=== PATIENT | male | born 1970 | race Caucasian/White ===

== ENCOUNTER 2018-01-06 15:57 | Emergency (ER) | payer SELFPAY ==
[2018-01-06 15:58] VITALS: BP 117/72; PULSE 95; RESP 17; TEMP 36.4; O2SAT 98; BMI 21.3
--- NOTE | 2018-01-06 16:08 | ED.VISSUMM ---
- ER Visit Summary Date of Service: 01/06/18 Chief Complaint: Back pain History of Present Illness: The patient is a 47 M who presents with back pain. Is been ongoing for 3 days. He tried to lift a tree of his driveway when he strained his lower back. Is in the right lumbar area. Movement and bending make it worse. Sitting makes it better at times. Denies any bowel or bladder incontinence. He has been trying heat, Aleve and Motrin without relief. He has a history of similar episodes in the past Physical Examination: Vital signs are reviewed. Back exam reveals right lumbar paraspinal tenderness to palpation. No midline tenderness. No thoracic or cervical pain. His neurologic exam is normal. Test Results: None indicated Emergency Department Course and Treatment: Patient will be given Norflex and Toradol here. He will go home with Dolobid and Flexeril. He will follow-up with his PCP he was also counseled on using ice and heat. Treatment Plan: [] Disposition: Discharge Impression: Lumbosacral strain This note was generated with [employer] dictation software. It may contain incorrect words, spelling, and punctuation that were not noted in review of the chart prior to signing ED Disposition - Plan for ED Patient: Chief Complaint: Back Referrals: Xiang Hooper MD [Primary Care Provider] -
--- NOTE | 2018-01-06 16:10 | ED.DEP ---
ED Disposition - Plan for ED Patient: Disposition: Home or Assisted Living Chief Complaint: Back Instructions: ED Sprain Strain Lumbar Prescriptions: Cyclobenzaprine [Flexeril] 10 mg PO TID PRN #20 tab PRN Reason: Muscle Spasm Diflunisal [Dolobid] 500 mg PO TID #21 tab Referrals: Xiang Hooper MD [Primary Care Provider] -
[2018-01-06] MEDS: Ketorolac 60 MG/2 ML Vial IM (16:27)
[2018-01-06] MEDS: Orphenadrine 60 MG/2 ML Ampul IM (16:27)
[2018-01-06 16:59] VITALS: BP 112/71; PULSE 82; RESP 14; TEMP 36.7; O2SAT 100
== END 2018-01-06 16:59 | disposition home or self-care (01) ==
PROVIDERS: Emergency Provider Emergency Medicine; Family Provider Family Medicine; PCP Family Medicine
DX: S39.012A Strain of muscle, fascia and tendon of lower back, initial encounter (principal); X50.0XXA Overexertion from strenuous movement or load, initial encounter; Y93.9 Activity, unspecified; Y92.008 Other place in unspecified non-institutional (private) residence as the place of occurrence of the external cause; Y99.9 Unspecified external cause status; Z72.0 Tobacco use
CPT/HCPCS: 96372; 99282

== ENCOUNTER 2020-10-23 19:58 | Emergency (ER) | payer SELFPAY ==
[2020-10-23 20:00] VITALS: BP 100/46; PULSE 82; RESP 16; TEMP 35.1; O2SAT 97; BMI 20.9
--- NOTE | 2020-10-23 20:10 | ED.DCSUM_ITS ---
History of Present Illness Chief Complaint: Dental Informant: Patient Onset: Days Context: Gradual Onset Current Severity: Moderate Maximum Severity: Moderate Narrative: Patient presents secondary to right upper dental pain and facial swelling. Patient states that he had been in the process of getting his teeth pulled but recently because of financial constraints has not been able to follow-up. 3 days ago he noted increased pain and swelling to the right upper dental region. No fevers or chills. No difficulty swallowing. - Past Medical History (1) MVP (mitral valve prolapse) Status: Chronic Past Medical History - Allergies and Home Meds Allergies/Adverse Reactions: Allergies Penicillins Allergy (Verified 10/23/20 20:01) Anaphylaxis Primary Care Physician: Xiang Hooper MD [Primary Care Provider] - Prior records reviewed: Yes Surgical History: noncontributory Lives: Spouse/ Significant Other Smoking Status: Current every day smoker Review of Systems General: Denies: Chills, Fever Eyes: Denies: Visual changes - bilaterally ENT: Reports: - - Right upper dental pain. Denies: Bilateral ear pain Cardiovascular: Denies: Chest pain Respiratory: Denies: Dyspnea, Cough Gastrointestinal: Denies: Abdominal pain, Vomiting, Diarrhea Genitourinary: Denies: Dysuria Musculoskeletal: Denies: Extremity Pain Skin: Denies: Rash Hematologic: Denies: Easy bruising, Easy bleeding Allergy: Denies: Uticaria Physical Exam Vital Signs/Narrative: Vital Signs Temp Pulse Resp BP Pulse Ox 10/23/20 20:00 95.1 F L 82 16 100/46 L 97 Inital Vital Signs reviewed: Yes General: Well nourished, Well developed Head: Normocephalic ENT: Moist mucous membranes, - - Patient is largely edentulous on the maxillary surface. There is one visible tooth broken at the root on the right upper side I believe is the primary source of the current infection. He does have mild right-sided facial edema. No facial erythema noted. No evidence of Mohsen's angina. Neck: Supple Cardiovascular: Regular rate, Regular rhythm Respiratory: No distress, CTA bilaterally Abdomen: Soft, Nontender Extremities: Nontender Skin: Normal color Neurological: Alert, Oriented x3 Psychological: Normal affect Diagnostic/Tx/Re-eval - Medical Decision Making Patient be treated with a course of clindamycin as he does have a penicillin allergy. He is given dental referral list. ED Disposition - Plan for ED Patient: Disposition: Home or Assisted Living Diagnosis: Dental infection Instructions: ED Dental Abscess Prescriptions: Clindamycin [Cleocin] 300 mg PO 4X/DAY #80 cap Transmission Status: Pending to [facility] Additional Instructions: Dental referral list provided.
[2020-10-23] MEDS: Clindamycin HCl 150 MG Capsule 300 MG PO (20:21)
== END 2020-10-23 20:28 | disposition home or self-care (01) ==
LOC: ED 20:22
PROVIDERS: Emergency Provider Emergency Medicine; PCP Family Medicine
DX: K04.7 Periapical abscess without sinus (principal); F17.200 Nicotine dependence, unspecified, uncomplicated
CPT/HCPCS: 99283

== ENCOUNTER 2022-02-10 08:00 | Emergency (ER) | payer SELFPAY ==
[2022-02-10 08:01] VITALS: BP 110/80; PULSE 90; RESP 18; TEMP 36.6; O2SAT 99; BMI 20.7
--- NOTE | 2022-02-10 08:15 | ED.VIS.DENTA ---
HPI History of Present Illness Chief Complaint: Dental Informant: patient Onset/Context/Timing Onset: Days Context: Gradual Onset Timing: Continuous Quality: Aching Location: Right upper molars Worsened by: Nothing Relieved by: - (Nothing) Associated Symptoms Assocated Symptom - Dental: jaw swelling and face swelling; Negative for fever, cold sensitivity or hot sensitivity Narrative Narrative: Patient presents with right upper dental pain that has been getting worse over the past couple days. Patient admits to increased swelling. Patient describes his pain as aching. Patient states nothing makes it better nothing makes it worse. Patient denies any fevers or chills. Patient denies any hot or cold sensitivity. Patient does admit to swelling of his face and jaw. Patient denies any difficulty breathing or difficulty swallowing. [facility] Medical History (Updated 02/10/22 @ 08:[address] Aman Morfin DO) Hx of cleft palate with cleft lip Home Medications clindamycin HCl [Cleocin HCl] 300 mg PO Q6H #40 capsule 02/10/22 [Rx Last Taken Unknown] Allergy/AdvReac Type Severity Reaction Status Date / Time Penicillins Allergy Anaphylaxis Verified 02/10/22 08:03 Surgical History (Updated 02/10/22 @ 08:[address] Aman Morfin DO) History of facial surgery Social History Smoking Status: Current every day smoker tobacco type: cigarettes ROS ROS ED Constitutional Constitutional ED: Denies chills or fever(s) Eyes Eyes: Denies blurry vision or change in vision ENT ENT ED: Reports sore throat; Denies rhinorrhea Cardiovascular Cardiovascular: Denies chest pain or palpitations Respiratory/Chest Respiratory/Chest: Denies cough or dyspnea Gastrointestinal Gastrointestinal: Denies nausea or vomiting Genitourinary Genitourinary ED: Denies dysuria or hematuria Musculoskeletal Musculoskeletal: Denies back pain or neck pain Integumentary Denies abscess or rash Neurologic Neurologic: Denies headache(s) or weakness Allergic/Immunologic Allergic/Immunologic ED: Denies mouth swelling or urticaria EXAM Physical Exam Const Vital Signs: 02/10/22 08:01 Temperature 98 F Temperature Source Temporal Pulse Rate 90 Respiratory Rate 18 Blood Pressure 110/80 Blood Pressure Mean 90 Pulse Ox 99 Oxygen Delivery Method Room Air Positive well nourished and well developed General Appearance ED: well developed and NAD HEENT HEENT Narrative: There are dental caries over the right upper premolar and molar. There is some gingival edema over the right upper molar. There is no fluctuance or evidence of any abscess. There is no discharge or drainage. Neck is supple. Trachea is midline. There is no JVD or lymphadenopathy. There is no sublingual edema or evidence of Shai's angina. Oropharynx is clear. Airway is patent. Mouth ED: Yes oral and palatal mucosa normal Mouth: oral and palatal mucosa normal Teeth and Gingiva: caries and poor dentition Throat: posterior oropharynx normal Neck no lymphadenopathy, supple and no JVD General: Negative for anterior neck swelling or submandibular swelling Neuro oriented x3, CN's II-XII intact bilaterally, moves all extremities, no focal motor deficits and no sensory deficits noted Sensorium / Orientation: alert Psych mental status grossly normal MDM MDM MDM Narrative Medical decision making narrative: Patient was given a dose of clindamycin here. Patient was given a prescription for clindamycin. Patient was instructed to take Tylenol or ibuprofen as needed for pain. Patient was instructed to follow-up with her dentist in 5 to 7 days. Patient was given a dental referral. Patient understood and was agreeable with the plan. All questions were answered. Discharge Plan Triage Chief Complaint: Dental ED Provider: Aman Morfin Dx/Rx/DC Orders Clinical Impression: Infected dental caries Instructions: ED Dental Pain, ED Dental Cavity Prescriptions: New clindamycin HCl [Cleocin HCl] 300 MG capsule 300 mg PO Q6H Qty: 40 RF: 0 Stand Alone Forms: ED Work / School Excuse Primary Care Provider: Xiang Hooper Referrals: Xiang Hooper MD [Primary Care Provider] - Joya Mota [NON-STAFF] - 5-7 Days Disposition Disposition: Home, Self Care
[2022-02-10] MEDS: Clindamycin HCl 150 MG Capsule 300 MG PO (08:33)
[2022-02-10 08:36] VITALS: RESP 16
== END 2022-02-10 08:37 | disposition home or self-care (01) ==
PROVIDERS: Emergency Provider Emergency Medicine; PCP Family Medicine; Visit Provider Emergency Medicine
DX: K02.9 Dental caries, unspecified (principal); F17.210 Nicotine dependence, cigarettes, uncomplicated
CPT/HCPCS: 99282

== ENCOUNTER 2022-02-22 16:01 | Emergency (ER) | payer SELFPAY ==
[2022-02-22 16:01] VITALS: BP 128/91; PULSE 78; RESP 16; TEMP 36.2; O2SAT 98; BMI 21.0
--- NOTE | 2022-02-22 16:18 | EX.ED.DYSGE1 ---
HPI History of Present Illness Chief Complaint: Rash Detail of Chief Complaint: Rash x2 days Informant: patient Narrative Narrative: Patient presents to the emergency department complaint of a rash that started 2 days ago. Patient states that he was started on clindamycin for a tooth infection 2 weeks ago and was still taking it when the rash started. Patient discontinued the clindamycin when the rash started. Patient complains of an itchy rash that oftentimes on his arms and trunk. Patient states that when he is at work and sweating it seems to be worse. He complains of itching with it. Denies any new soaps or detergents or other allergens. He denies any contact with chemicals or anything else that might explain the rash. Prior similar symptoms: No PFSH PFS Medical History (Updated 02/22/22 @ 16:[address] Andrea Del Rosario DO) Hx of cleft palate with cleft lip Home Medications clindamycin HCl [Cleocin HCl] 300 mg PO Q6H #40 capsule 02/10/22 [Rx Last Taken Unknown] prednisone 20 mg PO BID #10 tab 02/22/22 [Rx Last Taken Unknown] Allergy/AdvReac Type Severity Reaction Status Date / Time Penicillins Allergy Anaphylaxis Verified 02/22/22 16:01 Surgical History History of facial surgery Social History Smoking Status: Current every day smoker tobacco type: cigarettes ROS ROS ED Constitutional Constitutional ED: Reports systems reviewed and no addt'l complaints, except as documented; Denies body ache(s), change in weight or chills Eyes Eyes: Denies acute decrease in peripheral vision, change in vision, double vision or loss of vision ENT ENT ED: Reports none; Denies ear pain, lip swelling, loss taste/smell, neck pain, otalgia or sore throat Cardiovascular Cardiovascular: Reports none; Denies abdominal pain, chest pain with activity, leg edema, lightheadedness, palpitations, rapid heart rate or syncope Respiratory/Chest Respiratory/Chest: Reports none; Denies change in mental status, dry cough, dyspnea, hemoptysis, shortness of breath at rest or shortness of breath with exertion Gastrointestinal Gastrointestinal: Reports none; Denies abdominal pain, change in stool character, diarrhea, hematemesis, hematochezia, melena, rectal bleeding or vomiting Genitourinary Genitourinary ED: Reports none; Denies abdominal discomfort, anuria, dysuria, genital pain or polyuria Musculoskeletal Musculoskeletal: Reports none; Denies arthralgias, back pain, difficulty walking, extremity pain, muscle weakness or myalgias Integumentary Reports none and rash; Denies abscess Neurologic Neurologic: Reports none; Denies abnormal gait, confusion, focal weakness, frequent falls, headache(s), loss of vision, numbness, paresthesias, radicular pain, vertigo or weakness Psychiatric Psychiatric: Reports systems reviewed and no addt'l complaints, except as documented and none; Denies behavioral changes, confusion, difficulty concentrating, hallucinations, suicidal ideation, tactile hallucinations or visual hallucinations Endocrine Endocrinology: Denies none, cold intolerance, excessive sweating, fatigue or heat intolerance Hematologic/Lymphatic Hematologic/Lymphatic: Reports none; Denies anemia, easy bleeding or easy bruising Allergic/Immunologic Allergic/Immunologic ED: Denies as per HPI, none, lip swelling, mouth swelling, throat swelling, tongue swelling or hives EXAM Physical Exam Const Vital Signs: 02/22/22 16:01 Temperature 97.1 F L Temperature Source Temporal Pulse Rate 78 Respiratory Rate 16 Blood Pressure 128/91 H Blood Pressure Mean 103 Pulse Ox 98 Oxygen Delivery Method Room Air Positive well nourished and well developed General Appearance ED: well developed and NAD HEENT Reports TM's clear and moist mucous membranes normocephalic and atraumatic; Negative for trauma or tenderness Tympanic Membrane ED: Yes TM's clear Eyes PERRL and EOMs intact bilaterally General Eye ED: Negative for pale conjunctiva or scleral icterus Neck no lymphadenopathy, supple and no JVD General: Negative for tenderness Chest Wall inspection of chest normal and palpation of chest normal Chest: Negative for tenderness Resp normal respiratory effort and clear to auscultation bilaterally Effort and Inspection: Negative for respiratory distress or pain with movement Auscultation: Negative for rhonchi, wheezes or diminished lung sounds Cardio regular rate, regular rhythm, S1 normal heart sound, S2 normal heart sound and no murmurs Peripheral Pulses: pulses 2+ throughout GI normal to inspection, nondistended, normoactive bowel sounds, soft to palpation, non-tender, non-distended and no masses Back/Spine no CVA tenderness and no thoracic nor lumbar tenderness Extremity normal to inspection General Extremety ED: Negative for edema General Extremity: Negative for edema Neuro oriented x3, CN's II-XII intact bilaterally, no sensory deficits noted and gait normal Sensorium / Orientation: awake, alert, oriented to person, oriented to place and oriented to time Motor Exam: strength 5/5 throughout and strength abnormal Psych mental status grossly normal Skin no wounds Skin Narrative: Patient has some faint erythema noted on the anterior chest that blanches. I do not appreciate any other lesions on the extremities or trunk otherwise. Patient does describe the rash as hive-like when it is severe. MDM MDM MDM Narrative Medical decision making narrative: Etiology of the rash is unclear although suspect may be related to the use of clindamycin. Patient advised the avoid that in the future if possible. There is no evidence of angioedema or difficulty breathing. Patient will be started on prednisone and given first dose in the emergency department. Patient to follow-up with his primary care physician or physician on-call for no doc within the next 3 to 5 days. Patient advised to return if lip or tongue swelling or difficulty breathing or condition should worsen anyway. Discharge Plan Triage Chief Complaint: Rash ED Provider: Andrea Del Rosario Dx/Rx/DC Orders Clinical Impression: Allergic drug rash Instructions: ED Drug Reaction, Other Prescriptions: New prednisone 20 mg tablet 20 mg PO BID Qty: 10 RF: 0 No Action clindamycin HCl [Cleocin HCl] 300 MG capsule 300 mg PO Q6H Qty: 40 RF: 0 Primary Care Provider: Xiang Hooper Referrals: Xiang Hooper MD [Primary Care Provider] - 3-5 Days Disposition Disposition: Home, Self Care
[2022-02-22] MEDS: predniSONE 20 MG Tablet 40 MG PO (16:27)
== END 2022-02-22 16:30 | disposition home or self-care (01) ==
LOC: ED 16:28
PROVIDERS: Emergency Provider Emergency Medicine; PCP Family Medicine; Visit Provider Emergency Medicine
DX: L27.0 Generalized skin eruption due to drugs and medicaments taken internally (principal); F17.210 Nicotine dependence, cigarettes, uncomplicated; T36.8X5A Adverse effect of other systemic antibiotics, initial encounter
CPT/HCPCS: 99283

== ENCOUNTER 2023-01-04 11:38 | Emergency (ER) | payer SELFPAY ==
[2023-01-04 11:40] VITALS: BP 128/90; PULSE 95; RESP 14; TEMP 37.2; O2SAT 98; BMI 20.7
[2023-01-04 12:01] VITALS: BP 128/90; PULSE 95; RESP 14; TEMP 37.2; O2SAT 98
--- NOTE | 2023-01-04 12:32 | ED.VIS.DENTA ---
HPI History of Present Illness Chief Complaint: Dental Informant: patient Narrative Narrative: Gradually increasing dental pain over 2 to 3 days along with some mild swelling in the left maxillary face near the tooth. No fevers, chills, systemic symptoms. No discharge or bleeding from the area. The tooth that is affected has been previously decayed for some time. Does not have a dentist right now. PFSH PFSH Medical History Hx of cleft palate with cleft lip Home Medications clindamycin HCl 300 mg capsule (Cleocin HCl) 300 mg PO Q6H #40 CAPSULES 02/10/22 [Rx Last Taken Unknown] prednisone 20 mg tablet 20 mg PO BID #10 tabs 02/22/22 [Rx Last Taken Unknown] clindamycin HCl 150 mg capsule 300 mg PO 4X/DAY #80 CAPSULES 01/04/23 [Rx Last Taken Unknown] Allergy/AdvReac Type Severity Reaction Status Date / Time Penicillins Allergy Anaphylaxis Verified 01/04/23 11:40 Surgical History History of facial surgery Social History Smoking Status: Current every day smoker tobacco type: cigarettes ROS ROS ED Constitutional Constitutional ED: Denies chills or fever(s) Eyes Eyes: Denies change in vision or double vision ENT ENT ED: Reports dental pain; Denies sinus pain or throat swelling Cardiovascular Cardiovascular: Denies chest pain or palpitations Respiratory/Chest Respiratory/Chest: Denies cough or dyspnea Integumentary Denies abscess or rash Neurologic Neurologic: Denies headache(s), paresthesias or weakness EXAM Physical Exam Const Vital Signs: 01/04/23 11:40 01/04/23 12:01 Temperature 99 F 99 F Temperature Source Temporal Temporal Pulse Rate 95 95 Respiratory Rate 14 14 Blood Pressure 128/90 H 128/90 H Blood Pressure Mean 102 102 Pulse Ox 98 98 Oxygen Delivery Method Room Air Room Air Positive well nourished and well developed General Appearance ED: well developed and NAD HEENT HEENT Narrative: Approximately tooth #12 (multiple teeth missing and some decay difficult to count) he has decay down to the gumline, there is some mild swelling here but no obvious gingivitis or bleeding. There is a small pustule in the supra periapical area of this tooth, but there is no discharge or pointing abscess that I can feel, no definite collection. Externally mildly tender but no palpable collection. No erythema or signs of cellulitis. No trismus. Tongue normal. No elevation. Posterior oropharynx clear. Face and Sinus: sinuses nontender Throat: posterior oropharynx normal Eyes PERRL and EOMs intact bilaterally Neck no lymphadenopathy and supple Resp normal respiratory effort Neuro oriented x3 and CN's II-XII intact bilaterally Sensorium / Orientation: alert Gait (Neuro): normal gait Psych mental status grossly normal and thought process normal Skin no rashes or lesions noted and no wounds MDM MDM MDM Narrative Medical decision making narrative: Patient is allergic to penicillin, we will start him on clindamycin he was given instructions with regards to probiotic and/or yogurt in order to help prevent antibiotic associated diarrhea and C. difficile colitis. 10-day course, given dental referral list he was offered analgesics and declines and states he is doing well right now with regards to pain. Discharge Plan Triage Chief Complaint: Dental ED Provider: Christiano Conrad Dx/Rx/DC Orders Clinical Impression: Infected dental caries Instructions: ED Dental Abscess Prescriptions: New clindamycin HCl 150 mg capsule 300 mg PO 4X/DAY Qty: 80 0RF No Action clindamycin HCl [Cleocin HCl] 300 MG capsule 300 mg PO Q6H Qty: 40 0RF prednisone 20 mg tablet 20 mg PO BID Qty: 10 0RF Primary Care Provider: Care Physician,No Primary Referrals: Care Physician,No Primary [Primary Care Provider] - Dentist,Your [STAFF PHYSICIAN] - As soon as possible Disposition Disposition: Home, Self Care
[2023-01-04] MEDS: Clindamycin HCl 150 MG Capsule 300 MG PO (12:48)
--- NOTE | 2023-01-04 12:51 | CM.ED ---
KEVIN noted patient has no PCP and no insurance. KEVIN attempted to give patient resources however, he was already gone. Suzanne WILLIAM
== END 2023-01-04 12:57 | disposition home or self-care (01) ==
PROVIDERS: Emergency Provider Emergency Medicine; Visit Provider Emergency Medicine
DX: K02.9 Dental caries, unspecified (principal); F17.210 Nicotine dependence, cigarettes, uncomplicated; A04.72 Enterocolitis due to Clostridium difficile, not specified as recurrent
CPT/HCPCS: 99282

== ENCOUNTER 2023-12-11 23:23 | Emergency (ER) | payer SELFPAY ==
[2023-12-11 23:24] VITALS: BP 113/91; PULSE 87; RESP 18; TEMP 36.4; O2SAT 98; BMI 20.3
--- NOTE | 2023-12-11 23:48 | ED.VIS.DENTA ---
HPI History of Present Illness Chief Complaint: Dental Informant: patient Narrative Narrative: Patient presents with dental pain. Patient states he has had lots of problems with his teeth. He has had lots of them pull but it is expensive. He has had soreness in the left upper tooth for about 2 to 3 days. He noticed today he started to get a little swelling. No fevers or chills. No headache. No nausea vomiting. He has no medical problems and is on no medications. He states he cannot tolerate penicillin. PFSH PFSH Medical History Hx of cleft palate with cleft lip Home Medications clindamycin HCl 300 mg capsule (Cleocin HCl) 300 mg PO Q6H #40 CAPSULES 02/10/22 [Rx Last Taken Unknown] prednisone 20 mg tablet 20 mg PO BID #10 tabs 02/22/22 [Rx Last Taken Unknown] clindamycin HCl 150 mg capsule 300 mg (2 x 150 mg) PO 4X/DAY #80 CAPSULES 01/04/23 [Rx Last Taken Unknown] clindamycin HCl 300 mg capsule (Cleocin HCl) 300 mg PO Q6H #40 CAPSULES 12/11/23 [Rx Last Taken Unknown] naproxen 500 mg tablet (Naprosyn) 500 mg PO BID PRN pain #20 tabs 12/11/23 [Rx Last Taken Unknown] Allergy/AdvReac Type Severity Reaction Status Date / Time Penicillins Allergy Anaphylaxis Verified 12/11/23 23:24 Surgical History History of facial surgery Social History Smoking Status: Current every day smoker tobacco type: cigarettes ROS ROS ED Constitutional Constitutional ED: Denies chills or fever(s) Eyes Eyes: Denies blurry vision or change in vision ENT ENT ED: Reports other Details: See HPI Cardiovascular Cardiovascular: Denies chest pain or palpitations Respiratory/Chest Respiratory/Chest: Denies cough Gastrointestinal Gastrointestinal: Denies nausea or vomiting Musculoskeletal Musculoskeletal: Denies myalgias or neck pain Integumentary Denies rash Hematologic/Lymphatic Hematologic/Lymphatic: Denies easy bleeding, easy bruising or lymphadenopathy Allergic/Immunologic Allergic/Immunologic ED: Denies urticaria EXAM Physical Exam Narrative Exam Narrative: General: Patient awake alert sitting comfortably in bed no acute distress. HEENT: He has had prior cleft palate repair. He has some mild swelling of the face with flattening of nasolabial fold. No abscess. He has very poor dentition. Premolar is really eroded down to the gumline he has erythema also. But no drainable abscess. Voice is normal. No stridor. Neck supple. No lymphadenopathy. Cardiorespiratory shows easy unlabored breathing normal pulse and saturations are normal at 98% on room air showing no hypoxia. Const Vital Signs: 12/11/23 23:24 Temperature 97.6 F L Temperature Source Temporal Pulse Rate 87 Respiratory Rate 18 Blood Pressure 113/91 H Blood Pressure Mean 98 Pulse Ox 98 Oxygen Delivery Method Room Air MDM MDM MDM Narrative Medical decision making narrative: Patient has history and physical exam findings consistent with dental infection and likely abscess. Will get him on clindamycin as he has allergy to penicillin. I will give him a dental resource sheet also. Discharge Plan Triage Chief Complaint: Dental ED Provider: Thomas Lunsford Dx/Rx/DC Orders Clinical Impression: Abscess, dental Instructions: ED Dental Abscess Prescriptions: New clindamycin HCl [Cleocin HCl] 300 mg capsule 300 mg PO Q6H Qty: 40 0RF naproxen [Naprosyn] 500 mg tablet 500 mg PO BID PRN (Reason: pain) Qty: 20 0RF No Action clindamycin HCl [Cleocin HCl] 300 MG capsule 300 mg PO Q6H Qty: 40 0RF prednisone 20 mg tablet 20 mg PO BID Qty: 10 0RF clindamycin HCl 150 mg capsule 300 mg PO 4X/DAY Qty: 80 0RF Primary Care Provider: Care Physician,No Primary Referrals: Care Physician,No Primary [Primary Care Provider] - Activity Restrictions/Additional Instructions: See dentist as soon as possible Disposition Disposition: Home, Self Care
[2023-12-12] MEDS: Clindamycin HCl 150 MG Capsule 300 MG PO
== END 2023-12-12 00:03 | disposition home or self-care (01) ==
LOC: ED 12-12
PROVIDERS: Emergency Provider Emergency Medicine; Visit Provider Emergency Medicine
DX: K04.7 Periapical abscess without sinus (principal); F17.210 Nicotine dependence, cigarettes, uncomplicated
CPT/HCPCS: 99282

== ENCOUNTER 2024-07-20 21:16 | Emergency (ER) | payer SELFPAY ==
[2024-07-20 21:16] VITALS: BP 123/85; PULSE 84; RESP 19; TEMP 36.3; O2SAT 98; BMI 19.8
--- NOTE | 2024-07-20 21:31 | EDS_ITS ---
HPI History of Present Illness Chief Complaint: Dental Informant: patient Narrative Narrative: 2 to 3 days left dental pain, swelling. No fevers or chills or systemic symptoms. Started draining pus as he sat down to be evaluated here in the ER. [facility] Medical History Hx of cleft palate with cleft lip Home Medications ?Medication ?Instructions ?Recorded ?Last Taken ?Type naproxen 500 mg tablet (Naprosyn) 500 mg PO BID PRN pain #20 tabs 12/11/23 Unknown Rx clindamycin HCl 300 mg capsule 300 mg PO Q6H #40 CAPSULES 07/20/24 Unknown Rx (Cleocin HCl) Allergy/AdvReac Type Severity Reaction Status Date / Time Penicillins Allergy Anaphylaxis Verified 07/20/24 21:17 Surgical History History of facial surgery Social History Smoking Status: Current every day smoker tobacco type: cigarettes ROS ROS ED Constitutional Constitutional ED: Denies chills or fever(s) Eyes Eyes: Denies change in vision or double vision ENT ENT ED: Reports dental pain; Denies sinus pain or throat swelling Cardiovascular Cardiovascular: Denies chest pain or palpitations Respiratory/Chest Respiratory/Chest: Denies cough or dyspnea Integumentary Denies abscess or rash Neurologic Neurologic: Denies headache(s), paresthesias or weakness EXAM Physical Exam Const Vital Signs: 07/20/24 21:16 07/20/24 21:32 Temperature 97.3 F L 97.9 F Temperature Source Temporal Pulse Rate 84 80 Respiratory Rate 19 H 18 Blood Pressure 123/85 H 123/76 H Blood Pressure Mean 97 91 Pulse Ox 98 100 Oxygen Delivery Method Room Air Positive well nourished and well developed General Appearance ED: well developed and NAD HEENT HEENT Narrative: Poor dentition. Dental abscess with tenderness just external to tooth #11 approximately, with active purulence expressible. Visible externally with some asymmetric swelling. No trismus. No dysphonia or respiratory distress. Face and Sinus: sinuses nontender Throat: posterior oropharynx normal Eyes PERRL and EOMs intact bilaterally Neck no lymphadenopathy and supple Resp normal respiratory effort Neuro oriented x3 and CN's II-XII intact bilaterally Sensorium / Orientation: alert Gait (Neuro): normal gait Psych mental status grossly normal and thought process normal Skin no rashes or lesions noted and no wounds MDM MDM MDM Narrative Medical decision making narrative: Since patient is actively draining I gave him some ice water to rinse and massage out the contents of the abscess is best that he can and we will start him on clindamycin since he has anaphylaxis to penicillin and has tolerated clindamycin before. He tolerated a dose prior to coming here but states it was a leftover pill from another course. And giving him a new 1 and advising that he follow-up with a dentist he is comfortable with that plan. Discharge Plan Triage Chief Complaint: Dental ED Provider: Christiano Conrad Dx/Rx/DC Orders Clinical Impression: Dental abscess Instructions: Dental Abscess Prescriptions: Continued naproxen [Naprosyn] 500 mg tablet 500 mg PO BID PRN (Reason: pain) Qty: 20 0RF clindamycin HCl [Cleocin HCl] 300 MG capsule 300 mg PO Q6H Qty: 40 0RF Discontinued prednisone 20 mg tablet 20 mg PO BID Qty: 10 0RF clindamycin HCl 150 mg capsule 300 mg PO 4X/DAY Qty: 80 0RF clindamycin HCl [Cleocin HCl] 300 mg capsule 300 mg PO Q6H Qty: 40 0RF Primary Care Provider: Care Physician,No Primary Referrals: Dentist,Your [STAFF PHYSICIAN] - As soon as possible Print Language: Romanian Disposition Disposition: Home, Self Care
[2024-07-20 21:32] VITALS: BP 123/76; PULSE 80; RESP 18; TEMP 36.6; O2SAT 100
== END 2024-07-20 22:05 | disposition home or self-care (01) ==
LOC: ED 21:46
PROVIDERS: Emergency Provider Emergency Medicine; Visit Provider Emergency Medicine
DX: K04.7 Periapical abscess without sinus (principal); F17.210 Nicotine dependence, cigarettes, uncomplicated; Z88.0 Allergy status to penicillin
CPT/HCPCS: 99282

== ENCOUNTER 2024-12-06 16:10 | Emergency (ER) | payer SELFPAY ==
[2024-12-06 16:11] VITALS: BP 124/93; PULSE 82; RESP 16; TEMP 37.1; O2SAT 98; BMI 20.2
[2024-12-06] MEDS: Lidocaine 1% (20 ml mdv) 20 ML Vial 3 ML INFILT (18:56)
[2024-12-06] MEDS: Diphth,Pertuss(Acell),Tet Vac 0.5 ML Vial IM (18:56)
--- NOTE | 2024-12-06 19:25 | EX.ED.DYSGE1 ---
HPI <JUANA Nguyen - Last Filed: 12/06/24 19:38> History of Present Illness Chief Complaint: Laceration Narrative Narrative: Patient is a 54-year-old male with no significant history presents to the emerged part after sustaining a laceration while opening the door handle at work. Patient has a 1.5 cm laceration to the right index finger. Patient was concerned about the bleeding as well as it being in a metal shop. He is unsure of his last tetanus vaccination. He has full range of motion of the right index finger [facility] <JUANA Nguyen - Last Filed: 12/06/24 19:38> [facility] Medical History Hx of cleft palate with cleft lip Home Medications ?Medication ?Instructions ?Recorded ?Last Taken ?Type naproxen 500 mg tablet (Naprosyn) 500 mg PO BID PRN pain #20 tabs 12/11/23 Unknown Rx clindamycin HCl 300 mg capsule 300 mg PO Q6H #40 CAPSULES 07/20/24 Unknown Rx (Cleocin HCl) Allergy/AdvReac Type Severity Reaction Status Date / Time Penicillins Allergy Anaphylaxis Verified 12/06/24 16:11 Surgical History History of facial surgery Social History Smoking Status: Current every day smoker tobacco type: cigarettes ROS <JUANA Nguyen - Last Filed: 12/06/24 19:38> ROS ED ROS Narrative Constitutional: Negative for fever, chills, weight loss, weakness Eyes: Negative for vision loss, vision change, double vision ENT: Negative for any sore throat, ear pain, congestion Cardiovascular: Negative for any chest pain, tightness, palpitations Respiratory: Negative for any cough, sputum production, hemoptysis, dyspnea, dyspnea on exertion, orthopnea Gastrointestinal: Negative for any abdominal pain, nausea, vomiting, diarrhea, constipation, blood in stool, blood in vomit : Negative for any urinary frequency, dysuria, retention, blood in urine Muscle skeletal: Negative for any neck pain, back pain Neurological: Negative for any headache, syncope, dizziness Skin: Negative for any rashes, itching, abrasions. Positive for right index finger laceration Psychiatric: Negative for any depression, anxiety, stress, suicidal ideation, homicidal ideation Hematologic: Negative for any excessive bruising, easy bleeding EXAM <JUANA Nguyen - Last Filed: 12/06/24 19:38> Physical Exam Narrative Exam Narrative: Vital signs reviewed. Extremities: No peripheral edema, no signs of gross trauma or deformity. Active full range of motion of all extremities. Patient does have a 1.5 cm laceration to the palmar aspect of the right index finger, this is just below the PIP joint. Patient has full range of motion, able to flex and extend against resistance. This does not need sutures, however there is no bone involvement. Neuro: Cranial nerves II through XII intact, no focal neurological deficits. Skin: Clean dry and intact with no rash, purpura, petechiae, vesicles or pustules. Backs/flank: No CVA tenderness, no midline spinal tenderness, no deformity. Psych: Normal mood and affect. No SI, HI or acute psychosis. Const Vital Signs: 12/06/24 16:11 Temperature 98.7 F Temperature Source Temporal Pulse Rate 82 Respiratory Rate 16 Blood Pressure 124/93 H Blood Pressure Mean 103 Pulse Ox 98 Oxygen Delivery Method Room Air Positive well nourished and well developed General Appearance ED: well developed <Dev Mack MD - Last Filed: 12/06/24 20:15> Physical Exam Const Vital Signs: 12/06/24 16:11 Temperature 98.7 F Temperature Source Temporal Pulse Rate 82 Respiratory Rate 16 Blood Pressure 124/93 H Blood Pressure Mean 103 Pulse Ox 98 Oxygen Delivery Method Room Air MDM <JUANA Nguyen - Last Filed: 12/06/24 19:38> [facility] Treatment and Re-Evaluation :: Differential diagnosis includes however is not limited to: Finger tendon laceration, simple laceration, foreign body, fracture Patient appears generally well, vital signs are stable, patient is nontoxic-appearing. Presenting to the emergency department with a 1.5 cm laceration of the right index finger. This does not need any advanced imaging. Patient has full range of motion, no evidence to suspect any foreign body or tendon involvement. I was able to perform a digital block, sterile gloves, sterile drapes were used. I was a to place 4 simple interrupted sutures of 4-0 Ethilon. Patient tolerated well. Patient placed in a finger splint Patient will have sutures removed in 10 to 12 days. Will keep the area clean and dry. Instructed return for any worsening symptoms. All questions answered, stable for discharge. <Dev Mack MD - Last Filed: 12/06/24 20:15> [facility] MDM Narrative Medical decision making narrative: Dr. Mack: I have personally performed a face to face assessment of the patient and have reviewed the TYESHA Note. I performed a substantive portion of the visit including all aspects of the following. My renee findings include: History is right hand dominant male reached open door, and handle broke, sustaining laceration to medial to volar aspect of right index finger. Exam is GCS 15. ABCs intact. Positive laceration 1.5 cm on volar aspect to medial aspect of right index finger. No skin gaping, no apparent tendon involvement. Medical Decision Making: Laceration repair. Update tetanus immunization. Sutures to be removed in 10 days. Keep covered at work. Return instructions reviewed. Discharge. Other additions or changes: [None] History & Record Review Discussion w/independent historian: Patient Discharge Plan Triage Chief Complaint: Laceration ED Midlevel Provider: Duncan Holland ED Provider: Dev Mack Dx/Rx/DC Orders Clinical Impression: Finger laceration Instructions: ED Laceration Extremity Prescriptions: No Action naproxen [Naprosyn] 500 mg tablet 500 mg PO BID PRN (Reason: pain) Qty: 20 0RF clindamycin HCl [Cleocin HCl] 300 MG capsule 300 mg PO Q6H Qty: 40 0RF Primary Care Provider: Care Physician,No Primary Referrals: Care Physician,No Primary [Primary Care Provider] - Activity Restrictions/Additional Instructions: Have your sutures removed in 10 to 12 days. Print Language: Urdu Disposition Disposition: Home, Self Care Discharge Date/Time: 12/06/24 19:43
--- NOTE | 2024-12-06 19:33 | CM.ED ---
Social work Reason for referral: no PCP or insurance Referral source: case find This SW identified patient's lack of PCP, lack of insurance, and need for resources. This SW entered patient's room, introducing self and role at [facility]. Patient sitting in chair and welcomed SW visit. Patient stated cutting patient's finger on a door at work, but patient stated not knowing if patient's employer would cover this or not due to patient not being clocked in at the time. Patient confirmed lacking a PCP and accepted Joya Mota information due to being self-pay. Patient confirmed not having insurance and accepted resource of How to apply for Medicaid. Patient reported trying in the past to apply for Medicaid, but patient stated being willing to try again. Patient denied further needs at this time. Batsheva Cain, MAINTENANCE DEPARTMENT MANAGER, BUILDINGS PAINTER
== END 2024-12-06 19:43 | disposition home or self-care (01) ==
PROVIDERS: Emergency Provider Emergency Medicine; Visit Provider Emergency Medicine
DX: S61.210A Laceration without foreign body of right index finger without damage to nail, initial encounter (principal); W26.8XXA Contact with other sharp object(s), not elsewhere classified, initial encounter; Y99.0 Civilian activity done for income or pay; F17.210 Nicotine dependence, cigarettes, uncomplicated; Z23 Encounter for immunization
CPT/HCPCS: 12001; 90471; 90715; 99284